=== PATIENT | female | born 1975 | race Caucasian/White ===

== ENCOUNTER 2021-03-31 09:30 | Outpatient (RCR) | payer SELFPAY ==
[2021-02-25 13:02] VITALS: BMI 49.5
[2021-02-25 13:15] VITALS: BMI 49.5
[2021-03-31 09:23] VITALS: BMI 49.2
[2021-03-31 09:24] VITALS: BMI 49.2
== END 2021-05-17 09:34 | disposition home or self-care (01) ==
LOC: ANHDMC 09:30
PROVIDERS: PCP Physician Assistant; Visit Provider Physician Assistant
DX: E66.9 Obesity, unspecified (principal); Z71.3 Dietary counseling and surveillance
CPT/HCPCS: 97802; 97803

== ENCOUNTER 2021-05-26 08:16 | Outpatient (CLI) | payer OTHER, SELFPAY ==
--- NOTE | 2021-05-26 08:37 | EST_ITS ---
Patient Info Name: Chao Stuart Age: 46 years : 1975 Gender: Female Ht: 63 in Wt: 270 lbs BSA: 2.41 m2 HR: 72 bpm BP: 141 / 78 mmHg Heart Rhythm: Sinus Rhythm Exam Date: 05/26/2021 8:49 AM Exam Location: [facility] Stress Patient Status: Outpatient Admit Date: 05/26/2021 Staff Ordering Physician: Gonzalez Mansfield DO Attending Provider: Gonzalez Mansfield DO Exercise Technologist: Macie Reed CT Exercise Physician: Gonzalez Mansfield DO Exam Type: CA stress test treadmill Study Info Indications R07.9 - Chest pain, unspecified A treadmill exercise stress test was performed. Summary 1. 1. Negative Jamari exercise stress test for ischemic ST changes by ECG criteria. 2. 2. Reduced functional capacity, achieving 7 METs of workload. 3. 3. Baseline hypertension. 4. 4. Appropriate HR response to exercise. 5. 5. Appropriate HR recovery at 1 minute post exercise. 6. 6. No imaging with stress testing. 7. 7. Patient informed of the above results. Protocol: Jamari Stress ECG Details Stage: REST Duration (min): 1 min : 15 sec Speed (mph): 0.0 Grade (%): 0 HR (bpm): 76 SBP (mmHg): 141 DBP (mmHg): 78 METS: --- Stage: REST Duration (min): 5 min : 56 sec Speed (mph): 0.0 Grade (%): 0 HR (bpm): 73 SBP (mmHg): 141 DBP (mmHg): 78 METS: --- Stage: STAGE 1 Duration (min): 1 min : 0 sec Speed (mph): 1.7 Grade (%): 10 HR (bpm): 106 SBP (mmHg): 141 DBP (mmHg): 78 METS: --- Stage: STAGE 1 Duration (min): 2 min : 0 sec Speed (mph): 1.7 Grade (%): 10 HR (bpm): 131 SBP (mmHg): 141 DBP (mmHg): 78 METS: --- Stage: STAGE 1 Duration (min): 3 min : 0 sec Speed (mph): 1.7 Grade (%): 10 HR (bpm): 140 SBP (mmHg): 184 DBP (mmHg): 94 METS: --- Stage: STAGE 2 Duration (min): 1 min : 0 sec Speed (mph): 2.5 Grade (%): 12 HR (bpm): 146 SBP (mmHg): 184 DBP (mmHg): 94 METS: --- Stage: STAGE 2 Duration (min): 1 min : 52 sec Speed (mph): 2.5 Grade (%): 12 HR (bpm): 151 SBP (mmHg): 184 DBP (mmHg): 94 METS: --- Stage: RECOVERY Duration (min): 0 min : 7 sec Speed (mph): 1.5 Grade (%): 0 HR (bpm): 151 SBP (mmHg): 184 DBP (mmHg): 94 METS: --- Stage: RECOVERY Duration (min): 1 min : 7 sec Speed (mph): 0.0 Grade (%): 0 HR (bpm): 127 SBP (mmHg): 186 DBP (mmHg): 107 METS: --- Stage: RECOVERY Duration (min): 2 min : 7 sec Speed (mph): 0.0 Grade (%): 0 HR (bpm): 111 SBP (mmHg): 186 DBP (mmHg): 107 METS: --- Stage: RECOVERY Duration (min): 3 min : 7 sec Speed (mph): 0.0 Grade (%): 0 HR (bpm): 98 SBP (mmHg): 161 DBP (mmHg): 82 METS: --- Stage: RECOVERY Duration (min): 3 min : 14 sec Speed (mph): 0.0 Grade (%): 0 HR (bpm): 100 SBP (mmHg): 161 DBP (mmHg): 82 METS: --- R
[2021-05-26 08:58] LABS: Alanine Aminotransferase 13 U/L (4-35); Albumin Level 3.8 g/dL (3.5-5.1); Alkaline Phosphatase 105 U/L (38-126); Anion Gap 3 mmol/L (8-16); Aspartate Amino Transferase 22 U/L (14-36); Bilirubin,Total 0.3 mg/dL (0.2-1.3); Blood Urea Nitrogen 6 mg/dL (7-17); Calcium 8.5 mg/dL (8.4-10.2); Carbon Dioxide 28 mmol/L (22-30); Chloride 109 mmol/L (98-107); Cholesterol 120 mg/dL (0-200); Estimated Glomerular Filt Rate > 60; Glucose 106 mg/dL (65-110); HDL Direct 30 mg/dL; Potassium 4.1 mmol/L (3.4-5.0); Sodium 140 mmol/L (137-145); Triglycerides 90 mg/dL (<150)
[2021-05-26 09:09] LABS: LDL Cholesterol Direct 70 mg/dL
== END 2021-05-26 08:17 | disposition home or self-care (01) ==
LOC: ANHCARD 08:19
PROVIDERS: PCP Physician Assistant; Visit Provider Internal Medicine Cardiovascular Disease
DX: R07.9 Chest pain, unspecified (principal)
CPT/HCPCS: 36415; 80053; 80061; 93017

== ENCOUNTER 2021-09-10 09:53 | Outpatient (CLI) | payer OTHER, SELFPAY ==
--- NOTE | 2021-09-10 10:17 | ECHO_ITS ---
Patient Info Name: Chao Stuart Age: 46 years : 1975 Gender: Female Ht: 63 in Wt: 286 lbs BSA: 2.48 m2 HR: 64 bpm BP: 125 / 82 mmHg Technical Quality: Fair Exam Date: 09/10/2021 10:35 AM Exam Location: [facility] Patient Status: Outpatient Admit Date: 09/10/2021 Staff Ordering Physician: Gonzalez Mansfield DO [employer] Technician: Sushma Cha RDCS Attending Provider: Gonzalez Mansfield DO Referring Physician: Donal MEYER; Exam Type: CA echo doppler color flow Study Info Indications R06.00 - Dyspnea, unspecified Complete two-dimensional, color flow and Doppler transthoracic echocardiogram is performed. Summary 1. Complete two-dimensional, color flow and Doppler transthoracic echocardiogram is performed. 2. Left ventricular chamber dimension is normal. 3. Left ventricular systolic function is normal, estimated at 65-70%. 4. The left ventricular diastolic function is normal. 5. E/e' 5 is not elevated. 6. No pulmonary hypertension, estimated pulmonary arterial systolic pressure is 37 mmHg. Left Ventricle E/e' 5 is not elevated. Left ventricular chamber dimension is normal. Left ventricular systolic function is normal, estimated at 65-70%. The left ventricular diastolic function is normal. Right Ventricle Right ventricular chamber dimension is not well visualized. Left Atria Left atrial chamber dimension is normal. Right Atria Right atrial chamber dimension is normal. Aortic Valve The aortic valve is trileaflet. There is no aortic valve stenosis. There is no aortic valve regurgitation. Pulmonic Valve There is no pulmonic regurgitation. Mitral Valve There is no mitral valve stenosis. There is no mitral valve regurgitation. Tricuspid Valve There is no tricuspid valve regurgitation. No pulmonary hypertension, estimated pulmonary arterial systolic pressure is 37 mmHg. Pericardium/Pleural There is no pericardial effusion. Inferior Vena Cava Normal inferior vena cava with >50% collapse upon inspiration consistent with normal right atrial pressure, 5 mmHg. Aorta The aortic root size at the sinus of Valsalva is normal. Left Ventricular Outflow Tract Name Value Normal LVOT 2D LVOT Diameter 2.0 cm LVOT Doppler LVOT Peak Gradient 4 mmHg LVOT Mean Gradient 2 mmHg LVOT VTI 22 cm LVOT VTI/AV VTI Ratio 0.7 LVOT Stroke Volume 67 ml LVOT CO 12.1 l/min LVOT CI 4.9 l/min/m2 Pulmonic Valve Name Value Normal PV Doppler PV Peak Gradient 5 mmHg Mitral Valve Name Value Normal
== END 2021-09-10 09:54 | disposition home or self-care (01) ==
LOC: ANHCARD 09:54
PROVIDERS: PCP Physician Assistant; Visit Provider Internal Medicine Cardiovascular Disease
DX: R06.00 Dyspnea, unspecified (principal)
CPT/HCPCS: 93306

== ENCOUNTER 2021-12-30 08:10 | Outpatient (CLI) | payer OTHER, SELFPAY ==
--- NOTE | 2021-12-30 12:49 | WPDPFTINT ---
PFT Procedure Performed PFT Procedure Performed Spirometry with Pre/Post Bronchodilator Plethysmography (Lung Vol) Diffusing Cap (DLCO) Flow Vol Loop PFT Interpretation This is a pulmonary function test with pre and post-bronchodilator spirometry, plethysmography and diffusing capacity. The test was performed and results interpreted in accordance with the 2019 and 2005 ATS/ERS Task Force guidelines respectively using the Global Lung Function Initiative-2012 reference equations. Patient demonstrated good effort and cooperation. Reproducibility criteria were met. The quality of the pre bronchodilator spirometry maneuver was Grade A and post bronchodilator spirometry maneuver was Grade A. Findings: Spirometry: The contour the inspiratory and expiratory flow tracing are normal. The pre bronchodilator FVC is 3.13 L, 93% predicted. The pre bronchodilator FEV1 is 2.60 L, 95% predicted. The pre bronchodilator FEV1: FVC ratio was 83%. The post bronchodilator FVC is 3.09 L, representing 1% decrease. The post bronchodilator FEV1 is 2.63 L, representing 1% increase. The post bronchodilator FEV1: FVC ratio was 85%. Plethysmography: The total lung capacity is 3.97 L, 81% predicted. Functional residual capacity is 1.22 L, 45% predicted. The residual volume is 0.73 L, 43% predicted. Diffusion capacity: The diffusing capacity unadjusted for hemoglobin and carboxyhemoglobin is 22.8, 101% predicted. The diffusing capacity adjusted for alveolar volume is 5.55, 119% predicted. Impression: The spirometry is normal without evidence of an obstructive abnormality. There is no significant improvement after inhaling a single dose of albuterol. The total lung capacity is normal with a decreased functional residual capacity and residual volume. This is an abnormal but nonspecific lung volume pattern. The diffusing capacity is normal. There are no prior studies for comparison
== END 2021-12-30 08:11 | disposition home or self-care (01) ==
LOC: ANHPFT 08:14
PROVIDERS: PCP Physician Assistant; Visit Provider Physician Assistant
DX: Z01.810 Encounter for preprocedural cardiovascular examination (principal)
CPT/HCPCS: 94060; 94726; 94729